=== PATIENT | female | born 1965 | race Asian ===

== ENCOUNTER → 2016-12-15 | Day surgery (SDC) | payer BC ==
[~2016-12-15] MED LIST: ATORVASTATIN CA10 MG PO; CENTRUM SILVER PO; OMEPRAZOLE40 M1 PO
--- NOTE | ~2016-12-15 | OR ---
Unit #: [id number] #: [id number] Patient: ELDON MISHRA [id number] [address] [place], [place] [address] [id number] O MR#: [id number] NAME: ELDON MISHRA ROOM: Date of Procedure: 12/15/2016 Admission Date: 12/15/2016 Surgeon: Donis Muniz M.D. : 1965 Attending Physician: Donis Muniz M.D. Primary Care Physician: Shakira Hayes M.D. OPERATIVE REPORT PRIMARY CARE PHYSICIAN Shakira Hayes M.D. PREOPERATIVE DIAGNOSIS Colorectal cancer screening in an average-risk patient. PROCEDURE PERFORMED Colonoscopy up to cecum with good prep and excellent visualization. POSTOPERATIVE DIAGNOSES Completely normal examination up to cecum. The patient did not have any polyps nor any diverticula or hemorrhoids. The quality of the prep was excellent. RECOMMENDATIONS Repeat colonoscopy in 10 years. SEDATION USED MAC. DESCRIPTION OF PROCEDURE Following detailed explanation of the potential risks and complications of a colonoscopy, namely perforation, bleeding, and complication related to sedation, the patient was brought to GI lab and laid in the left lateral decubitus position. A digital rectal examination was performed, which was normal. Lubricated tip of the Olympus video colonoscope was inserted through the anus and advanced under direct vision. The scope was advanced past rectosigmoid into descending colon. No diverticula were seen in this area. The scope tip was then navigated all the way up to cecum with visualization of the ileocecal valve and the appendiceal orifice. Preparation was excellent with good visualization and photodocumentation was obtained. Last several inches of the terminal ileum were also visualized after intubation of the ileocecal valve and appeared normal. Successive segments of the colonic mucosa were examined upon withdrawal and appeared unremarkable. There being no polyps, mass lesions, AVMs, or diverticula. The patient did not have any hemorrhoids at anal verge. The scope was then withdrawn and the patient returned to the recovery area. She tolerated the procedure without any postprocedure complications. Dictated by... Donis Muniz M.D. Unit #: [id number] #: [id number] Patient: ELDON MISHRA AK/modl TD: 12/15/2016 14:38 JOB #: [id number] OPERATIVE REPORT X Donis Muniz MD PROCEDURE OPERATIVE NOTE
== END | disposition home or self-care (01) ==
LOC: COPS 07:17
DX: Z12.11 Encounter for screening for malignant neoplasm of colon (principal); Z87.01 Personal history of pneumonia (recurrent); Z79.899 Other long term (current) drug therapy; Z98.890 Other specified postprocedural states
CPT/HCPCS: J2250

== ENCOUNTER → 2016-12-20 | Outpatient (CLI) | payer BC ==
--- NOTE | ~2016-12-20 | MY11 ---
[facility] A Service of [facility] / [facility] RADIOLOGY TEXT RESULTS PATIENT: ELDON MISHRA LOCATION: [facility] : 63 UNIT #: [id number] AGE: [address]: Shakira Hayes MD SEX: F ORDER DR: [id number] [facility]. [place], [place] [address] [id number] O MR#: [id number] Acc #: [id number] NAME: ELDON MISHRA : 1965 SEX: F STUDY DATE/TIME: 12/20/2016 15:44 UNIT: [facility] ROOM: STUDY DESCRIPTION: MY Mammogram Screening Dig James Attending Physician: Shakira Hayes M.D. Referring Physician: Dionisio Trevino M.D. Ordering Physician: Shakira Hayes M.D. Primary Care Physician: Shakira Hayes M.D. MEDICAL IMAGING REPORT This report is preliminary unless electronic signature is present EXAM Bilateral digital screening mammogram with CAD. DATE OF EXAM 12/20/2016 INDICATIONS 51-year-old female for routine screening. No reported problems. No personal or family history of breast cancer. Breast surgery over a year ago on the left with benign results. TECHNIQUE CC and MLO views of breast were obtained and reviewed with an FDA-approved CAD device COMPARISONS 10/26/2015, 09/02/2015, 08/20/2015, 06/07/2015, 01/02/2012. FINDINGS Breast parenchyma is composed of scattered fibroglandular densities. The pattern is unchanged. Scar marker on the left. There is no new dominant nodule mass or suspicious clustered microcalcifications. There is architectural distortion in the left breast related to surgical change. IMPRESSION Benign screening mammogram, 1 year followup recommended. Patients over the age of 40 are entered into a reminder system with target due date for the next mammogram. A result letter will also be sent to the patient. BIRADS: 2 Benign findings. [facility] A Service of [facility] / [facility] RADIOLOGY TEXT RESULTS PATIENT: ELDON MISHRA [id number] 63 UNIT #: [id number] AGE: [address]: Shakira Hayes MD SEX: F ORDER DR: Dictated by... Marlon Griffin M.D. THIS IS AN ELECTRONICALLY VERIFIED REPORT Marlon Griffin M.D. at 12/21/2016 7:19 AM ASH/sangeetha TD: 12/20/2016 20:01 JOB #: [id number] MEDICAL IMAGING REPORT COPY
== END | disposition home or self-care (01) ==
LOC: CWCC 15:17
DX: Z12.31 Encounter for screening mammogram for malignant neoplasm of breast (principal); Z98.890 Other specified postprocedural states
CPT/HCPCS: G0202

== ENCOUNTER → 2017-06-06 | Outpatient (CLI) | payer BC ==
--- NOTE | ~2017-06-06 | CR63 ---
[facility] A Service of [facility] & [facility] RADIOLOGY TEXT RESULTS PATIENT: ELDON MISHRA LOCATION: [facility] : 63 UNIT #: [id number] AGE: [address]: Shakira Hayes MD SEX: F ORDER DR: [id number] [facility] [address] [facility]. [place], [place] [address] [id number] O MR#: [id number] Acc #: [id number] NAME: ELDON MISHRA : 1965 SEX: F STUDY DATE/TIME: 06/06/2017 9:23 UNIT: [facility] ROOM: STUDY DESCRIPTION: CR Chest 2 View Attending Physician: Shakira Hayes M.D. Referring Physician: Shakira Hayes M.D. Ordering Physician: Shakira Hayes M.D. Primary Care Physician: Shakira Hayes M.D. MEDICAL IMAGING REPORT This report is preliminary unless electronic signature is present EXAM Chest 06/06/2017 HISTORY 52-year-old woman chest pain, short of air past 10 days. Nonsmoker. COMPARISON Chest 10/13/2015. FINDINGS PA and lateral chest views show normal cardiac size and configuration. Hilar structures and mediastinal contours are preserved. Bilateral lungs are expanded and clear. Costophrenic angles are clear. IMPRESSION Negative and stable chest. Dictated by... Eduardo Carney M.D. THIS IS AN ELECTRONICALLY VERIFIED REPORT Eduardo Carney M.D. at 06/06/2017 12:55 PM DONAVAN/maria a TD: 06/06/2017 12:22 JOB #: [id number] MEDICAL IMAGING REPORT Page 1 of 1 COPY
--- NOTE | ~2017-06-06 | HM ---
Unit #: [id number] #: [id number] Patient: ELDON MISHRA [id number] [facility] [address] [place], [place] [address] [id number] O MR#: [id number] NAME: ELDON MISHRA : 1965 SEX: F STUDY DATE/TIME: 06/06/2017 UNIT: [facility] ROOM: STUDY DESCRIPTION: Twenty-four hour Holter Attending Physician: Shakira Hayes M.D. Referring Physician: Shakira Haeys M.D. Primary Care Physician: Shakira Hayes M.D. CARDIOLOGY REPORT EXAM Twenty-four hour Holter report. DATE APPLIED 06/06/2017 DATE SCANNED 06/14/2017 ORDERED BY Shakira Hayes M.D. READ BY [facility] Jolanta Hood M.D. REASON FOR THE STUDY Palpitations.. FINDINGS Underlying rhythm is normal sinus rhythm with an average heart rate of 83 beats per minute, minimum heart rate of 58 beats per minute, and a maximum heart rate of 127 beats per minute. The minimum heart rate of 58 beats per minute is noted at 1:28 a.m. The maximum heart rate of 127 beats per minute is noted at 3:39 p.m. The patient had a 0.78 second pause noted at 8:05 p.m. The patient had 28 single multifocal premature ventricular complexes and 1 premature atrial complex noted. The patient recorded several symptoms of headache, left shoulder pain, dizziness, throat pain and right breast pain, all of which correlated with normal sinus rhythm. CONCLUSION 1. Underlying rhythm is normal sinus rhythm with an average heart rate of 83 beats per minute, minimum heart rate of 58 beats per minute and a maximum heart rate of 127 beats per minute. 2. No sustained atrial or ventricular arrhythmias noted. 3. No significant pauses noted. 4. No significant premature atrial complexes or premature ventricular complexes noted. 5. The patient recorded symptoms of dizziness, throat pain, right breast pain and chest pain - all of which correlated with normal sinus rhythm. Unit #: [id number] #: [id number] Patient: ELDON MISHRA Dictated by..Zahira Davis M.D. PA/db TD: 06/14/2017 14:42 JOB #: [id number] CARDIOLOGY REPORT Page 1 of 1 X Jolanta Davis MD <ELECTRONICALLY SIGNED> 07/12/17 1524 HOLTER MONITOR REPORT
== END | disposition home or self-care (01) ==
LOC: CEKG 09:06
DX: R00.2 Palpitations (principal); R07.9 Chest pain, unspecified
CPT/HCPCS: 71020; 93225; 93226